=== PATIENT | male | born 1960 | race Caucasian/White ===

== ENCOUNTER 2017-04-15 12:19 | Emergency (ER) | payer MEDICAID ==
[~2017-04-15] VITALS: Ht 170.2 cm; Wt 68.0 kg
[2017-04-15 12:20] VITALS: BP_SYST 118
[2017-04-15 12:53] VITALS: BP_SYST 127
== END 2017-04-15 12:54 | disposition home or self-care (01) ==
LOC: SED 12:19
DX: H60.92 Unspecified otitis externa, left ear (principal); J45.909 Unspecified asthma, uncomplicated; I10 Essential (primary) hypertension; J44.9 Chronic obstructive pulmonary disease, unspecified; F31.9 Bipolar disorder, unspecified
CPT/HCPCS: 99283

== ENCOUNTER 2017-10-26 04:22 | Emergency (ER) | payer MEDICAID ==
[~2017-10-26] VITALS: Ht 170.2 cm; Wt 68.0 kg
[2017-10-26 04:22] VITALS: BP_SYST 127
[2017-10-26 05:02] VITALS: BP_SYST 128
== END 2017-10-26 05:02 | disposition home or self-care (01) ==
LOC: SED 04:22
DX: B34.9 Viral infection, unspecified (principal); I10 Essential (primary) hypertension; J45.909 Unspecified asthma, uncomplicated; J44.9 Chronic obstructive pulmonary disease, unspecified; F31.9 Bipolar disorder, unspecified
CPT/HCPCS: 99283

== ENCOUNTER 2017-11-01 19:28 | Emergency (ER) | payer MEDICAID ==
[~2017-11-01] VITALS: Ht 170.2 cm; Wt 68.0 kg
[2017-11-01 19:35] VITALS: BP_SYST 116
[2017-11-01] MEDS ORDERED: NEOMYCIN/POLYMYX B/HYDROCORTISONE 10 ML EAR DROPS.SUSP OT ONE (19:45)
[2017-11-01 20:25] VITALS: BP_SYST 123
== END 2017-11-01 20:25 | disposition home or self-care (01) ==
LOC: SED 19:28
DX: H60.92 Unspecified otitis externa, left ear (principal); F17.200 Nicotine dependence, unspecified, uncomplicated; J45.909 Unspecified asthma, uncomplicated; I10 Essential (primary) hypertension; F31.9 Bipolar disorder, unspecified; Z59.0 Homelessness; Z71.6 Tobacco abuse counseling
CPT/HCPCS: 99283

== ENCOUNTER 2017-12-07 03:51 | Emergency (ER) | payer MEDICAID ==
[~2017-12-07] VITALS: Ht 170.2 cm; Wt 68.0 kg
[2017-12-07 03:51] VITALS: BP_SYST 108
[2017-12-07] MEDS ORDERED: IPRATROPIUM/ALBUTEROL SULFATE 3 ML AMPUL.NEB INH ONE (04:45)
[2017-12-07] MEDS ORDERED: PREDNISONE 20 MG TABLET PO ONE (04:45)
[2017-12-07 05:21] VITALS: BP_SYST 106
== END 2017-12-07 05:52 | disposition home or self-care (01) ==
LOC: SED 03:51
DX: H65.92 Unspecified nonsuppurative otitis media, left ear (principal); J45.901 Unspecified asthma with (acute) exacerbation; I10 Essential (primary) hypertension; F17.200 Nicotine dependence, unspecified, uncomplicated; F31.9 Bipolar disorder, unspecified
CPT/HCPCS: 71045; 94640; 99283; J7512

== ENCOUNTER 2017-12-22 19:23 | Emergency (ER) | payer MEDICAID ==
[~2017-12-22] VITALS: Ht 157.5 cm; Wt 68.0 kg
[2017-12-22 19:30] VITALS: BP_SYST 125
[2017-12-22 20:00] LABS: BASOPHILS # (AUTO) 0.2 K/uL (0.0-0.2); BASOPHILS % (AUTO) 2.2 % (0.0-2.0); EOSINOPHILS # (AUTO) 0.2 K/uL (0.0-0.4); EOSINOPHILS % (AUTO) 2.2 % (0.0-4.0); HEMATOCRIT 40.8 % (36-54); HEMOGLOBIN 13.8 g/dL (14.0-18.0); LYMPHOCYTES # (AUTO) 2.7 K/uL (1.0-5.5); LYMPHOCYTES % (AUTO) 26.8 % (20.5-51.5); MEAN CORPUSCULAR HEMOGLOBIN 33 pg (27-31); MEAN CORPUSCULAR HGB CONC 34 % (32-36); MEAN CORPUSCULAR VOLUME 97 fL (79.0-98.0); MONOCYTES # (AUTO) 0.6 K/uL (0.0-1.0); MONOCYTES % (AUTO) 6.3 % (1.7-9.3); NEUTROPHILS # (AUTO) 6.5 K/uL (1.8-7.7); NEUTROPHILS % (AUTO) 62.5 % (40.0-70.0); PLATELET COUNT (AUTO) 270 K/uL (130-430); RED BLOOD CELL COUNT(AUTO) 4.22 MIL/uL (4.2-6.2); RED CELL DISTRIBUTION WIDTH 12.4 % (9.0-15.0); WHITE BLOOD COUNT (AUTO) 10.2 K/uL (4.8-10.8)
[2017-12-22 20:12] LABS: ANION GAP 6 (5-15); CALCIUM 8.7 mg/dL (8.4-11.0); CHLORIDE 103 mmol/L (98-107); CREATININE 0.95 mg/dL (0.55-1.30); GLUCOSE 92 mg/dL (70-99); POTASSIUM 4.3 mmol/L (3.5-5.1); SODIUM SERUM 134 mmol/L (136-145); UREA NITROGEN, BLOOD 15 mg/dL (8-21)
[2017-12-22 20:15] LABS: GFR AFRICAN AMERICAN 105 mL/min (>90)
[2017-12-22 20:16] LABS: ALANINE AMINOTRANSFERASE 21 U/L (12-78); ALBUMIN 3.4 g/dL (3.4-4.8); ASPARTATE AMINOTRANSFERASE 19 U/L (10-37); LIPASE 86 U/L (73-393); TOTAL BILIRUBIN 0.3 mg/dL (0.0-1.0)
[2017-12-22 20:18] LABS: PROTHROMBIN TIME 10.1 SECS (9.5-12.5)
[2017-12-22 20:26] LABS: BILIRUBIN,URINE NEGATIVE (NEGATIVE); BLOOD, URINE NEGATIVE (NEGATIVE); CLARITY/URINE CLEAR (CLEAR); COLOR,URINE YELLOW (YELLOW); GLUCOSE,URINE NEGATIVE (NEGATIVE); KETONES,URINE NEGATIVE (NEGATIVE); LEUKOCYTE ESTERASE ,URINE NEGATIVE (NEGATIVE); NITRITE, URINE NEGATIVE (NEGATIVE); PH,URINE 6.5 (5.0-8.0); PROTEIN URINE NEGATIVE (NEGATIVE); UROBILINOGEN,URINE 0.2 (0.2-1.0)
[2017-12-22 20:27] LABS: ALCOHOL, BLOOD < 3 mg/dL (<10)
[2017-12-22 20:31] LABS: BARBITURATE, URINE NEGATIVE (NEG <=200); BENZODIAZEPINE, URINE NEGATIVE (NEG <=150); CANNABINOID, URINE NEGATIVE (NEG <=50); COCAINE, URINE NEGATIVE (NEG <=150); METHAMPHETAMINES SCREEN,URINE NEGATIVE (NEG <=500); OPIATE, URINE NEGATIVE (NEG <=100); PHENCYCLIDINE SCREEN,URINE NEGATIVE (NEG <=25); UR TRICYCLIC ANTIDEPRESSANTS NEGATIVE (NEG <=300); URINE AMPHETAMINE NEGATIVE (NEG <=500); URINE METHADONE NEGATIVE (NEG <=200); URINE OXYCODONE SCREEN NEGATIVE (NEG <=100); URINE PROPOXYPHENE SCREEN NEGATIVE (NEG <=300)
[2017-12-23 15:26] VITALS: BP_SYST 110
== END 2017-12-23 15:26 | disposition home or self-care (01) ==
LOC: SED 19:23
DX: F23 Brief psychotic disorder (principal); R45.850 Homicidal ideations; J44.9 Chronic obstructive pulmonary disease, unspecified; I10 Essential (primary) hypertension; F31.9 Bipolar disorder, unspecified
CPT/HCPCS: 36415; 71045; 80053; 80307; 81003; 82550; 83690; 84484; 85025; 85610; 85730; 93005; 99285; G0482

== ENCOUNTER 2018-01-13 04:53 | Emergency (ER) | payer MEDICAID ==
[~2018-01-13] VITALS: Ht 160 cm; Wt 68.0 kg
[2018-01-13 04:56] VITALS: BP_SYST 141
[2018-01-13 05:20] VITALS: BP_SYST 138
== END 2018-01-13 05:20 | disposition home or self-care (01) ==
LOC: SED 04:53
DX: H92.03 Otalgia, bilateral (principal); F29 Unspecified psychosis not due to a substance or known physiological condition; J44.9 Chronic obstructive pulmonary disease, unspecified; I10 Essential (primary) hypertension; F31.9 Bipolar disorder, unspecified; F17.210 Nicotine dependence, cigarettes, uncomplicated; Z71.6 Tobacco abuse counseling
CPT/HCPCS: 99283

== ENCOUNTER 2018-04-14 02:17 | Emergency (ER) | payer MEDICAID ==
[~2018-04-14] VITALS: Ht 170.2 cm; Wt 71.7 kg
[2018-04-14 02:25] VITALS: BP_SYST 111
--- NOTE | 2018-04-14 02:37 | NUR ---
Patient to ER bed 4 to gown for evaluation. Side rails up.
--- NOTE | 2018-04-14 02:39 | NUR ---
Patient AAOx4, ambulatory with steady gait. Patient states having a main complaint of right toe pain which has been present for "about 3 months" prior to ER visit. Patient states pain worsened this evening. Patient is able to flex and extend his toes with minimal increase in pain. Cap refill is brisk and <2 seconds to right toes. No deformity noted. Patient denies any other complaints.
--- NOTE | 2018-04-14 03:01 | NUR ---
ER Dr. Contreras at bedside examining patient.
[2018-04-14 03:22] VITALS: BP_SYST 113
--- NOTE | 2018-04-14 03:22 | NUR ---
Patient given written and verbal discharge instructions and verbalizes understanding. ER MD discussed with patient the results and treatment provided. Patient in stable condition. ID arm band removed. Patient educated on pain management and to follow up with PMD. Pain Scale 0/10. Opportunity for questions provided and answered. Medication side effect fact sheet provided.
== END 2018-04-14 03:22 | disposition home or self-care (01) ==
LOC: SED 02:17
DX: M79.671 Pain in right foot (principal); B35.3 Tinea pedis; F17.200 Nicotine dependence, unspecified, uncomplicated; J44.9 Chronic obstructive pulmonary disease, unspecified; F31.9 Bipolar disorder, unspecified; I10 Essential (primary) hypertension
CPT/HCPCS: 96372; 99284; 99285

== ENCOUNTER 2018-04-27 03:01 | Emergency (ER) | payer MEDICAID ==
[~2018-04-27] VITALS: Ht 170.2 cm; Wt 76.2 kg
[2018-04-27 03:10] VITALS: BP_SYST 105
[2018-04-27 04:48] VITALS: BP_SYST 110
== END 2018-04-27 04:48 | disposition home or self-care (01) ==
LOC: SED 03:01
DX: M19.079 Primary osteoarthritis, unspecified ankle and foot (principal); J44.9 Chronic obstructive pulmonary disease, unspecified; I10 Essential (primary) hypertension; F17.200 Nicotine dependence, unspecified, uncomplicated; Z71.6 Tobacco abuse counseling
CPT/HCPCS: 99281

== ENCOUNTER 2018-09-12 07:32 | Emergency (ER) | payer MEDICAID ==
[~2018-09-12] VITALS: Ht 170.2 cm; Wt 70.3 kg
[2018-09-12 07:36] VITALS: BP_SYST 100
--- NOTE | 2018-09-12 07:39 | NUR ---
Pt placed in bed 7
--- NOTE | 2018-09-12 07:39 | NUR ---
patient is AOx4 from home with a dry cough and body aches x 3 days. patient admits to daily smoking and denies drinking and drugs. patient denies taking anything for cough and is requesting codine cough medicine. patient lives with girlfriend and family currently. no other complaint or injury at this time.
--- NOTE | 2018-09-12 07:41 | NUR ---
ER at bedside examining patient.
[2018-09-12] MEDS ORDERED: PREDNISONE 20 MG TABLET PO ONE (08:00)
[2018-09-12] MEDS ORDERED: ALBUTEROL SULFATE 0.083% 2.5 MG/3 ML VIAL.NEB IH ONE (08:00)
[2018-09-12] MEDS ORDERED: IPRATROPIUM BROM 0.5 MG/2.5 ML VIAL.NEB (ATROVENT) IH ONE (08:00)
--- NOTE | 2018-09-12 08:37 | NUR ---
Patient given written and verbal discharge instructions and verbalizes understanding. ER MD discussed with patient the results and treatment provided. Patient in stable condition. ID arm band removed. . Rx of Z-pack, Robitussin, tylenol given. Patient educated on pain management and to follow up with PMD. Pain Scale 0/10. Opportunity for questions provided and answered. Medication side effect fact sheet provided.
[2018-09-12 08:38] VITALS: BP_SYST 144
== END 2018-09-12 08:37 | disposition home or self-care (01) ==
LOC: SED 07:32
DX: J20.9 Acute bronchitis, unspecified (principal); J44.9 Chronic obstructive pulmonary disease, unspecified; I10 Essential (primary) hypertension; F31.9 Bipolar disorder, unspecified
CPT/HCPCS: 71045; 94640; 99283; J7512; J7613

== ENCOUNTER 2018-09-12 21:12 | Emergency (ER) | payer MEDICAID ==
[~2018-09-12] VITALS: Ht 170.2 cm; Wt 70.3 kg
[2018-09-12 21:23] VITALS: BP_SYST 156
--- NOTE | 2018-09-12 21:23 | NUR ---
Patient to ER bed 8 for evaluation.
--- NOTE | 2018-09-12 21:25 | NUR ---
Patient to ER via triage for evaluation of cough, patient seen in ER earlier today for same complaint. Patient able to ambulate without difficulty with slow, steady gait. Patient reports productive cough, patient was diagnosed with bronchitis earlier today. Patient is awake, alert and oriented in no acute distress, vital signs stable, respirations even and unlabored, skin warm and dry to touch. Patient ambulating about room with slow, steady gait. Awaiting evaluation by ER MD, will continue to observe and assess.
--- NOTE | 2018-09-12 21:28 | NUR ---
ER Dr. Gustafson at bedside examining patient.
[2018-09-12] MEDS ORDERED: MAG HYDROX/AL HYDROX/SIMETH 30 ML, BELLADONNA ALKALOIDS/PHENOBARB 10 ML, LIDOCAINE VISC... PO ONE ×3 (21:45)
--- NOTE | 2018-09-12 21:55 | NUR ---
Dr Gustafson at bedside speaking with patient regarding plan of care, questions answered by Dr Gustafson. Patient states that he is ready to be discharged.
[2018-09-12 22:05] VITALS: BP_SYST 140
--- NOTE | 2018-09-12 22:05 | NUR ---
Patient given written and verbal discharge instructions and verbalizes understanding. ER MD discussed with patient the results and treatment provided. Patient in stable condition. ID arm band removed. Rx of Protonix given. Patient educated on pain management and to follow up with PMD. Pain Scale 0. Opportunity for questions provided and answered. Medication side effect fact sheet provided. Patient left ER in no acute distress, able to ambulate without difficulty with slow, steady gait. No adverse reaction noted to medication.
== END 2018-09-12 22:05 | disposition home or self-care (01) ==
LOC: SED 21:12
DX: K21.9 Gastro-esophageal reflux disease without esophagitis (principal); J44.9 Chronic obstructive pulmonary disease, unspecified; I10 Essential (primary) hypertension; F31.9 Bipolar disorder, unspecified
CPT/HCPCS: 99283; J2001

== ENCOUNTER 2018-09-13 18:55 | Emergency (ER) | payer MEDICAID ==
[~2018-09-13] VITALS: Ht 170.2 cm; Wt 70.3 kg
[2018-09-13 19:07] VITALS: BP_SYST 118
--- NOTE | 2018-09-13 20:22 | NUR ---
Pt ambulatory to bed 4 for evaluation
--- NOTE | 2018-09-13 20:26 | NUR ---
Pt. alert oriented x4. c/o bloody sputum x2 with cough. Pt. states was ER patient 09/11/18 & 09/12/18 for bronchitis and is on day 3 of abx.
--- NOTE | 2018-09-13 21:00 | NUR ---
ER Dr. Gustafson at bedside examining patient.
--- NOTE | 2018-09-13 21:30 | NUR ---
Pt is resting in bed coughing. Vitals are stable will continue to monitor.
--- NOTE | 2018-09-13 22:20 | NUR ---
Pt coughing and C/O shortness of breath. ER MD notified and pt placed on 2LPM via nasal cannula.
[2018-09-13] MEDS ORDERED: IPRATROPIUM/ALBUTEROL SULFATE 3 ML AMPUL.NEB (DUONEB) INH ONE (22:30)
[2018-09-13] MEDS ORDERED: methylPREDNISolone SOD SUCC/PF 62.5 MG/ML VIAL IVP ONE (22:30)
--- NOTE | 2018-09-13 22:34 | NUR ---
Pt is resting in bed, RT at bedside for breathing treatment. No acute distress noted at this time
[2018-09-13 22:36] LABS: WHITE BLOOD COUNT (AUTO) 4.8 K/uL (4.8-10.8)
[2018-09-13 22:37] LABS: HEMATOCRIT 40.2 % (36-54); HEMOGLOBIN 13.2 g/dL (14.0-18.0); MEAN CORPUSCULAR VOLUME 97 fL (79.0-98.0); RED BLOOD CELL COUNT(AUTO) 4.14 MIL/uL (4.2-6.2)
[2018-09-13 22:38] LABS: BASOPHILS # (AUTO) 0.1 K/uL (0.0-0.2); BASOPHILS % (AUTO) 1.5 % (0.0-2.0); EOSINOPHILS % (AUTO) 0.7 % (0.0-4.0); LYMPHOCYTES # (AUTO) 1.5 K/uL (1.0-5.5); LYMPHOCYTES % (AUTO) 32.4 % (20.5-51.5); MEAN CORPUSCULAR HEMOGLOBIN 32 pg (27-31); MEAN CORPUSCULAR HGB CONC 33 % (32-36); MONOCYTES # (AUTO) 0.5 K/uL (0.0-1.0); MONOCYTES % (AUTO) 10.8 % (1.7-9.3); NEUTROPHILS # (AUTO) 2.7 K/uL (1.8-7.7); NEUTROPHILS % (AUTO) 54.6 % (40.0-70.0); PLATELET COUNT (AUTO) 213 K/uL (130-430); RED CELL DISTRIBUTION WIDTH 12.1 % (9.0-15.0)
--- NOTE | 2018-09-13 23:05 | NUR ---
Pt is resting in bed and states the breathing treatment helped and oxygen has helped. Pt is currently at 93% on 2 liters of O2 via nasal cannula.
[2018-09-13 23:11] LABS: CALCIUM 8.4 mg/dL (8.4-11.0); POTASSIUM 4.1 mmol/L (3.5-5.1)
[2018-09-13 23:12] LABS: ALBUMIN 3.1 g/dL (3.4-4.8); CREATININE 1.02 mg/dL (0.55-1.30); TOTAL BILIRUBIN 0.2 mg/dL (0.0-1.0)
[2018-09-13 23:42] LABS: PROTHROMBIN TIME 9.9 SECS (9.5-12.5)
--- NOTE | 2018-09-14 00:07 | NUR ---
Pt is sleeping in bed, no acute distress or coughing noted at this time.
--- NOTE | 2018-09-14 00:09 | NUR ---
Dr. Gustafson at bedside discussing results with patient.
--- NOTE | 2018-09-14 00:25 | NUR ---
Patient given written and verbal discharge instructions and verbalizes understanding. ER MD discussed with patient the results and treatment provided. Patient in stable condition. ID arm band removed. Rx of Prednisone given. Patient educated on pain management and to follow up with PMD. Pain Scale 0/10. Opportunity for questions provided and answered. Medication side effect fact sheet provided.
[2018-09-14 00:26] VITALS: BP_SYST 101
== END 2018-09-14 00:26 | disposition home or self-care (01) ==
LOC: SED 18:55
DX: J40 Bronchitis, not specified as acute or chronic (principal); R53.1 Weakness; J44.9 Chronic obstructive pulmonary disease, unspecified; I10 Essential (primary) hypertension
CPT/HCPCS: 36415; 71045; 80053; 85025; 85610; 94640; 96374; 99284; J2930; J7620

== ENCOUNTER 2018-11-18 02:51 | Emergency (ER) | payer MEDICAID ==
[~2018-11-18] VITALS: Ht 172.7 cm; Wt 70.3 kg
[2018-11-18 03:03] VITALS: BP_SYST 110
[2018-11-18] MEDS ORDERED: IPRATROPIUM/ALBUTEROL SULFATE 3 ML AMPUL.NEB (DUONEB) INH ONE ×2 (03:15→03:45)
[2018-11-18] MEDS ORDERED: methylPREDNISolone SOD SUCC/PF 62.5 MG/ML VIAL IM ONE (03:15)
[2018-11-18 04:15] VITALS: BP_SYST 110
== END 2018-11-18 04:15 | disposition home or self-care (01) ==
LOC: SED 02:51
DX: J44.1 Chronic obstructive pulmonary disease with (acute) exacerbation (principal); J20.9 Acute bronchitis, unspecified; F31.9 Bipolar disorder, unspecified; F17.200 Nicotine dependence, unspecified, uncomplicated
CPT/HCPCS: 71045; 94640; 96372; 99284; J2930; J7620

== ENCOUNTER 2019-02-19 13:45 | Emergency (ER) | payer MEDICAID ==
[~2019-02-19] VITALS: Ht 170.2 cm; Wt 70.3 kg
[2019-02-19 14:00] VITALS: BP_SYST 110
[2019-02-19 14:56] VITALS: BP_SYST 110
== END 2019-02-19 14:35 | disposition home or self-care (01) ==
LOC: SED 13:45
DX: L20.9 Atopic dermatitis, unspecified (principal); F31.9 Bipolar disorder, unspecified; J44.9 Chronic obstructive pulmonary disease, unspecified; I10 Essential (primary) hypertension
CPT/HCPCS: 99282

== ENCOUNTER 2019-03-10 23:27 | Emergency (ER) | payer MEDICAID ==
[~2019-03-10] VITALS: Ht 170.2 cm; Wt 70.3 kg
[2019-03-10 23:30] VITALS: BP_SYST 101
--- NOTE | 2019-03-10 23:35 | NUR ---
Patient to ER bed 5 for evaluation.
--- NOTE | 2019-03-10 23:40 | NUR ---
Patient to ER via triage for evaluation of cough that has been increasing in severity for the last several days. No increase noted in work of breathing, patient able to ambulate without difficulty with slow, steady gait. Patient is awake, alert and oriented in no acute distresss, vital signs stable, respirations even and unlabored, skin warm and dry to touch. Patient able to ambulate without difficulty with slow, steady gait. Awaiting evaluation by ER MD, will continue to observe and assess.
--- NOTE | 2019-03-10 23:49 | NUR ---
AMANDA Riojas at bedside examining patient.
--- NOTE | 2019-03-10 23:57 | NUR ---
RT at bedside administering breathing TX.
[2019-03-11] MEDS ORDERED: IPRATROPIUM/ALBUTEROL SULFATE 3 ML AMPUL.NEB (DUONEB) INH ONE
[2019-03-11] MEDS ORDERED: methylPREDNISolone SOD SUCC/PF 62.5 MG/ML VIAL IM ONE
--- NOTE | 2019-03-11 00:05 | NUR ---
X-ray at bedside for films. Awaiting results and dispo. No adverse reaction noted to medication.
[2019-03-11 00:55] VITALS: BP_SYST 100
--- NOTE | 2019-03-11 00:55 | NUR ---
Patient given written and verbal discharge instructions and verbalizes understanding. ER MD discussed with patient the results and treatment provided. Patient in stable condition. ID arm band removed. Rx of Prednisone, Albuterol, Levaquin given. Patient educated on pain management and to follow up with PMD. Pain Scale 0. Opportunity for questions provided and answered. Medication side effect fact sheet provided. Patient left ER in no acute distress, able to ambulate without difficulty with slow, steady gait. No adverse reaction noted to medication.
== END 2019-03-11 00:55 | disposition home or self-care (01) ==
LOC: SED 23:27
DX: J44.1 Chronic obstructive pulmonary disease with (acute) exacerbation (principal); F17.210 Nicotine dependence, cigarettes, uncomplicated; I10 Essential (primary) hypertension; F31.9 Bipolar disorder, unspecified; Z71.6 Tobacco abuse counseling
CPT/HCPCS: 71045; 94640; 96372; 99283; J2930; J7620

== ENCOUNTER 2019-03-16 00:09 | Emergency (ER) | payer MEDICAID ==
[~2019-03-16] VITALS: Ht 165.1 cm; Wt 72.6 kg
[2019-03-16 00:50] VITALS: BP_SYST 109
[2019-03-16 01:49] LABS: BARBITURATE, URINE NEGATIVE (NEG <=200); BENZODIAZEPINE, URINE NEGATIVE (NEG <=150); CANNABINOID, URINE NEGATIVE (NEG <=50); COCAINE, URINE NEGATIVE (NEG <=150); METHAMPHETAMINES SCREEN,URINE NEGATIVE (NEG <=500); OPIATE, URINE NEGATIVE (NEG <=100); PHENCYCLIDINE SCREEN,URINE NEGATIVE (NEG <=25); UR TRICYCLIC ANTIDEPRESSANTS NEGATIVE (NEG <=300); URINE AMPHETAMINE NEGATIVE (NEG <=500); URINE METHADONE NEGATIVE (NEG <=200); URINE OXYCODONE SCREEN NEGATIVE (NEG <=100); URINE PROPOXYPHENE SCREEN NEGATIVE (NEG <=300)
[2019-03-16 02:32] LABS: BASOPHILS # (AUTO) 0.1 K/uL (0.0-0.2); BASOPHILS % (AUTO) 0.8 % (0.0-2.0); EOSINOPHILS # (AUTO) 0.4 K/uL (0.0-0.4); EOSINOPHILS % (AUTO) 3.4 % (0.0-4.0); HEMATOCRIT 43.4 % (36-54); HEMOGLOBIN 14.6 g/dL (14.0-18.0); LYMPHOCYTES % (AUTO) 28.6 % (20.5-51.5); MEAN CORPUSCULAR HEMOGLOBIN 33 pg (27-31); MEAN CORPUSCULAR HGB CONC 34 % (32-36); MEAN CORPUSCULAR VOLUME 99 fL (79.0-98.0); MONOCYTES # (AUTO) 0.3 K/uL (0.0-1.0); MONOCYTES % (AUTO) 2.8 % (1.7-9.3); NEUTROPHILS # (AUTO) 6.7 K/uL (1.8-7.7); NEUTROPHILS % (AUTO) 64.4 % (40.0-70.0); PLATELET COUNT (AUTO) 260 K/uL (130-430); RED CELL DISTRIBUTION WIDTH 13.1 % (9.0-15.0); WHITE BLOOD COUNT (AUTO) 10.4 K/uL (4.8-10.8)
[2019-03-16 02:39] LABS: CALCIUM 8.9 mg/dL (8.4-11.0); CREATININE 0.98 mg/dL (0.55-1.30); POTASSIUM 4.3 mmol/L (3.5-5.1)
[2019-03-16 02:43] LABS: ALBUMIN 3.4 g/dL (3.4-4.8); TOTAL BILIRUBIN 0.2 mg/dL (0.0-1.0)
[2019-03-16 06:13] LABS: BILIRUBIN,URINE NEGATIVE (NEGATIVE); CLARITY/URINE CLEAR (CLEAR); COLOR,URINE YELLOW (YELLOW); GLUCOSE,URINE NEGATIVE (NEGATIVE); KETONES,URINE NEGATIVE (NEGATIVE); LEUKOCYTE ESTERASE ,URINE NEGATIVE (NEGATIVE); NITRITE, URINE NEGATIVE (NEGATIVE); PROTEIN URINE NEGATIVE (NEGATIVE); UROBILINOGEN,URINE 0.2 (0.2-1.0)
[2019-03-16 06:18] LABS: BLOOD, URINE TRACE (NEGATIVE)
[2019-03-16 06:21] LABS: BACTERIA,URINE FEW /HPF (None Seen); WBC,URINE 0-3 /HPF (0-3)
[2019-03-16] MEDS ORDERED: LORazepam 1 MG TABLET PO ONE (08:45)
[2019-03-16 10:00] VITALS: BP_SYST 104
== END 2019-03-16 10:00 | disposition home or self-care (01) ==
LOC: SED 00:09
DX: R45.851 Suicidal ideations (principal); F41.9 Anxiety disorder, unspecified; J44.9 Chronic obstructive pulmonary disease, unspecified; I10 Essential (primary) hypertension; Z86.59 Personal history of other mental and behavioral disorders
CPT/HCPCS: 36415; 80053; 80307; 81000-TC; 82150-TC; 85025; 99283

== ENCOUNTER 2019-05-01 03:29 | Emergency (ER) | payer MEDICAID ==
[~2019-05-01] VITALS: Ht 170.2 cm; Wt 70.3 kg
--- NOTE | 2019-05-01 03:34 | NUR ---
Called pt name in the wr.no answer.
[2019-05-01 03:40] VITALS: BP_SYST 123
--- NOTE | 2019-05-01 03:41 | NUR ---
Patient to ER bed 5 to gown for evaluation. Side rails up. Report given to Michele REYEZ.
--- NOTE | 2019-05-01 03:45 | NUR ---
Pt C/O inability to sleep. Upon assessment pt was asked the reason for his ER visit and replies "I don't know that's why i'm here. Pt appears restless, anxious and fidgety. Denies any drug or alchol use. Will continue to monitor.
--- NOTE | 2019-05-01 04:40 | NUR ---
Pt eloped without being discharged. States "I feel better now, I think I am going to go now". Pt has been advised of the risks of leaving before discharge and is unwilling to sign AMA. Dr. He is aware
[2019-05-01 04:42] VITALS: BP_SYST 123
== END 2019-05-01 04:42 | disposition left against medical advice (07) ==
LOC: SED 03:29
DX: R42 Dizziness and giddiness (principal); J44.9 Chronic obstructive pulmonary disease, unspecified; I10 Essential (primary) hypertension
CPT/HCPCS: 99281

== ENCOUNTER 2019-07-27 02:57 | Emergency (ER) | payer MEDICAID ==
[~2019-07-27] VITALS: Ht 170.2 cm; Wt 70.3 kg
[2019-07-27 03:30] VITALS: BP_SYST 111
[2019-07-27] MEDS ORDERED: ALBUTEROL SULFATE 0.083% 2.5 MG/3 ML VIAL.NEB INH ONE (04:00)
[2019-07-27 04:10] VITALS: BP_SYST 111
== END 2019-07-27 04:10 | disposition home or self-care (01) ==
LOC: SED 02:57
DX: R05 Cough (principal); F17.290 Nicotine dependence, other tobacco product, uncomplicated
CPT/HCPCS: 94640; 99283; J7613

== ENCOUNTER 2019-09-14 10:47 | Emergency (ER) | payer MEDICAID ==
[~2019-09-14] VITALS: Ht 165.1 cm; Wt 70.3 kg
[2019-09-14 10:48] VITALS: BP_SYST 122
--- NOTE | 2019-09-14 10:50 | NUR ---
Patient to ER bed 01 to gown for evaluation. Side rails up.
--- NOTE | 2019-09-14 11:10 | NUR ---
DR RYDER AT BEDSIDE FOR EVALUATION
[2019-09-14] MEDS ORDERED: KETOROLAC TROMETHAMINE 60 MG/2 ML VIAL IM ONE (11:30)
[2019-09-14] MEDS ORDERED: LORazepam 1 MG TABLET PO ONE (12:30)
--- NOTE | 2019-09-14 12:38 | NUR ---
PT IS HYPERVERBAL, LUNCH TRAY ORDERED REQUESTED.
[2019-09-14 13:10] VITALS: BP_SYST 119
--- NOTE | 2019-09-14 13:10 | NUR ---
Patient to be Discharged to self , going home to [place]. Receiving facility has accepting physician and available space. Patient or responsible alliance party has agreed to transfer and signed form. Patient belongings inventoried and will be sent with patient. Copy of nursing notes, lab reports, EKG, Physicians Orders and X-rays to be sent with patient. Report called to Mandy REYEZ at receiving facility. [facility] has been called for transfer. ETA is 45 min.
== END 2019-09-14 13:10 | disposition home or self-care (01) ==
LOC: SED 10:47
DX: S16.1XXA Strain of muscle, fascia and tendon at neck level, initial encounter (principal); I10 Essential (primary) hypertension; J45.909 Unspecified asthma, uncomplicated; J44.9 Chronic obstructive pulmonary disease, unspecified; X50.9XXA Other and unspecified overexertion or strenuous movements or postures, initial encounter; Y93.89 Activity, other specified; Y92.89 Other specified places as the place of occurrence of the external cause; Y99.8 Other external cause status
CPT/HCPCS: 72040; 96372; 99283; J1885